=== PATIENT | male | born 1985 | race Caucasian/White ===

== ENCOUNTER 2016-11-07 20:21 | Emergency (ER) | payer SELFPAY ==
--- NOTE | 2016-11-07 21:01 | EDM.PDOC ---
ED HPI GENERAL MEDICAL PROBLEM - General Chief Complaint: Skin Complaint Stated Complaint: PAIN BACK Time Seen by Provider: 11/07/16 20:49 Source of Information: Reports: Patient History Limitations: Reports: No Limitations - History of Present Illness INITIAL COMMENTS - FREE TEXT/NARRATIVE: Presents reporting a firm Quarter sized swelling in his mid back without overlying lesion or redness. The patient states he noticed it when he brushed up against something and it was tender there. He denies any fever or constitutional symptoms. 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 He states he is otherwise very healthy and has no medical problems. - Related Data Allergies Allergy/AdvReac Type Severity Reaction Status Date / Time No Known Allergies Allergy Verified 11/07/16 20:52 Home Meds: Home Meds . [No Known Home Meds] 11/07/16 [History] ED ROS GENERAL - Review of Systems Review Of Systems: ROS reveals no pertinent complaints other than HPI. ED EXAM, SKIN/RASH Exam: See Below Exam Limited By: No Limitations General Appearance: Alert, No Apparent Distress Ears: Normal External Exam Nose: Normal Inspection Throat/Mouth: Normal Inspection Head: Atraumatic, Normocephalic Neck: Normal Inspection Respiratory/Chest: No Respiratory Distress, Lungs Clear, Normal Breath Sounds Cardiovascular: Normal Peripheral Pulses, Regular Rate, Rhythm, No Murmur GI/Abdominal: Soft Back Exam: Other (Left mid back Quarter sized indurated firm mass without overlying erythema lesion or exudate. Hair follicle noted in center. No fluctuance but it is tender to palpation) Extremities: Normal Inspection Neurological: Alert, Oriented, Normal Cognition Psychiatric: Normal Affect, Normal Mood Skin: Warm, Dry, Intact, Normal Color, No Rash Departure - Departure Time of Disposition: 20:59 Disposition: Home, Self-Care 01 Condition: Good Clinical Impression: Folliculitis - Discharge Information Referrals: PCP,None [Primary Care Provider] - [facility] [Outside] [facility] [Outside] Forms: ED Department Discharge Additional Instructions: 1. The treatment for immature folliculitis/abscess lesions that are firm and not draining is to use warm moist compresses every 4 hours for 20 minutes until it comes to a head and then incision and drainage. 2. Report expanding redness or fever promptly. Have your check the lesion every day for maturity and complications such as expanding redness
== END 2016-11-07 21:06 | disposition home or self-care (01) ==
LOC: MW.ED 20:21
DX: L73.9 Follicular disorder, unspecified (principal)
CPT/HCPCS: 99282